=== PATIENT | female | born 1985 | race Caucasian/White ===

== ENCOUNTER 2021-12-02 09:14 | Emergency (ER) | payer BC | END 2021-12-02 10:29 | disposition home or self-care (01) | LOC: BURERS 09:14 | DX: S30.0XXA Contusion of lower back and pelvis, initial encounter (principal); X58.XXXA Exposure to other specified factors, initial encounter | CPT/HCPCS: 72220 ==

== ENCOUNTER 2022-01-07 07:22 | Emergency (ER) | payer BC ==
[2022-01-07] MEDS ORDERED: Bacitracin 1 PK ONE (08:24)
== END 2022-01-07 08:32 | disposition home or self-care (01) ==
LOC: BURERS 07:22
DX: L08.9 Local infection of the skin and subcutaneous tissue, unspecified (principal)
CPT/HCPCS: 99283

== ENCOUNTER 2022-10-30 12:20 | Emergency (ER) | payer OTHER | END 2022-10-30 13:05 | disposition home or self-care (01) | LOC: BURERS 12:20 | DX: S90.32XA Contusion of left foot, initial encounter (principal); W20.8XXA Other cause of strike by thrown, projected or falling object, initial encounter ==

== ENCOUNTER 2025-01-06 18:14 | Emergency (ER) | payer BC | END 2025-01-06 18:52 | disposition home or self-care (01) | LOC: BURERS 18:14 | DX: H60.501 Unspecified acute noninfective otitis externa, right ear (principal) | CPT/HCPCS: 99282 ==